=== PATIENT | female | born 1955 ===

== ENCOUNTER 2018-06-06 11:02 | Emergency (ER) | payer OTHER ==
[~2018-06-06] VITALS: Ht 167.6 cm; Wt 86.2 kg
[2018-06-06] MEDS ORDERED: PROMETH-CODEIN 65 ML PO (16:07)
[2018-06-06] MEDS ORDERED: IPRAT-ALBUT 0.5-3 ML IH (16:07)
[2018-06-06] MEDS ORDERED: MUCINEX DM ER1 EAC1 PO (16:07)
[2018-06-06] MEDS ORDERED: MEDROLPACK PO (16:07)
== END 2018-06-06 17:12 | disposition home or self-care (01) ==
LOC: ER 11:02
DX: J06.9 Acute upper respiratory infection, unspecified (principal)